=== PATIENT | female | born 1985 | race Caucasian/White ===

== ENCOUNTER 2023-06-21 20:55 | Inpatient (IN) | payer BC ==
[~2023-06-21] VITALS: Ht 165.1 cm; Wt 90.9 kg
[2023-06-21 21:36] LABS: BASOPHILS % (AUTO) 0.3 % (0-1); EOSINOPHILS % (AUTO) 0.1 % (0-6); HEMATOCRIT 43.2 % (35.0-45.0); HEMOGLOBIN 15.1 g/dl (12.0-16.0); LYMPHOCYTES # (AUTO) 0.7 X10'3 (1.1-4.8); LYMPHOCYTES % (AUTO) 4.9 % (21-51); MEAN CORPUSCULAR HEMOGLOBIN 31.9 PG (27.0-31.0); MEAN CORPUSCULAR HGB CONC 34.9 g/dL (33.0-36.5); MEAN CORPUSCULAR VOLUME 91.5 FL (78-98); MEAN PLATELET VOLUME 6.8 FL (7.4-10.4); MONOCYTES # (AUTO) 0.9 X10'3 (0-0.9); MONOCYTES % (AUTO) 6.4 % (2-12); NEUTROPHILS # (AUTO) 12.6 X10'3 (1.8-7.7); NEUTROPHILS % (AUTO) 88.3 % (42-75); PLATELET COUNT 264 X10'3 (140-440); RED BLOOD COUNT 4.72 X10'6 (4.20-5.60); RED CELL DISTRIBUTION WIDTH 12.8 % (11.5-14.5); WHITE BLOOD COUNT 14.2 X10'3 (4.5-11.0)
[2023-06-21 21:48] LABS: ALANINE AMINOTRANSFERASE 40 U/L (12-78); ALBUMIN 3.9 G/DL (3.4-5.0); ALKALINE PHOSPHATASE 70 IU/L (46-116); ANION GAP 13 (8-16); ASPARTATE AMINO TRANSFERASE 24 U/L (10-37); BILIRUBIN,TOTAL 0.9 MG/DL (0.1-1.0); BLOOD UREA NITROGEN 11 MG/DL (7-18); BUN/CREATININE RATIO 11.2 (10.0-20.0); CALCIUM 10.1 MG/DL (8.5-10.1); CHLORIDE 103 MMOL/L (99-107); CREATININE 0.98 MG/DL (0.40-0.90); GLUCOSE 143 MG/DL (70-104); LIPASE 41 U/L (16-77); POTASSIUM 3.4 MMOL/L (3.5-5.1); SODIUM 140 MMOL/L (135-145); TOTAL CARBON DIOXIDE 24.3 MMOL/L (24-32); TOTAL PROTEIN 7.9 G/DL (6.4-8.2); eCRCL 69 ML/MIN; eGFR 63 ML/MIN
[2023-06-21] MEDS: ondansetron/PF 4mg/2ml inj IV ONE (23:36)
[2023-06-21] MEDS: morphine 4 MG/ML inj SYRINge IV PRN (23:37)
[2023-06-21] MEDS: normal saline 1000ML IV soln IVB ONE (23:43)
[2023-06-22] VITALS (18 sets, daily range): BP systolic 98–149; BP diastolic 47–81; PULSE 74–127; RESP 12–23; TEMP 98.1–99.2; O2SAT 94–99
[2023-06-22] MEDS: piperacillin/tazo 4.5gm/100ml 100 ML IV ONE (00:31)
[2023-06-22 00:35] LABS: URINE HCG NEGATIVE (NEG)
[2023-06-22 00:36] LABS: BILIRUBIN,URINE SMALL (Neg); CLARITY,URINE TURBID (Clear); COLOR,URINE AMBER (Yellow); GLUCOSE, URINE NEGATIVE (Neg); KETONES,URINE TRACE mg/dl (Neg); LEUKOCYTE ESTERASE ,URINE NEGATIVE (Neg); NITRITES, URINE NEGATIVE (Neg); OCCULT BLOOD,URINE NEGATIVE (Neg); PH,URINE 5.5 (4.8-8.0); PROTEIN,URINE NEGATIVE (Neg); UROBILINOGEN,URINE 0.2 E.U/dL (0.2-1.0)
[2023-06-22 01:02] LABS: UA COLLECTION TYPE CLN CATCH MIDSTREAM
[2023-06-22 01:03] LABS: SQUAMOUS EPITHELIAL CELL,UR MANY /LPF (FEW)
[2023-06-22 01:04] LABS: AMORPHOUS URATES 4+
[2023-06-22] MEDS ORDERED: potassium Cl 20 mEq SR tablet PO PRN (01:15)
[2023-06-22] MEDS ORDERED: magnesium 4gm in 100ml NS 100 ML IV PRN (01:15)
[2023-06-22] MEDS ORDERED: magnesium Cl slow-release 64mg tablet PO PRN (01:15)
[2023-06-22] MEDS ORDERED: mag hydrox/Alum hydrox/simeth 30ml oral suspension PO PRN (01:15)
[2023-06-22] MEDS ORDERED: ondansetron/PF 4mg/2ml inj IV PRN ×2 (01:15→04:50)
[2023-06-22] MEDS ORDERED: potassium Cl 40MEQ/1/2NS 520ml 520 ML IV PRN (01:15)
[2023-06-22] MEDS ORDERED: magnesium hydroxide 30ml (MOM) UD suspension PO PRN (01:15)
[2023-06-22 01:21] LABS: BACTERIA,URINE 3+ /HPF (Neg); RBC,URINE 0-2 /HPF (0-2); WBC,URINE 0-4 /HPF (0-4)
[2023-06-22 01:30] LABS: APTT 24 SECONDS (22-32); INR 1.1 INR; PROTHROMBIN TIME 11.4 SECONDS (9.0-12.0)
[2023-06-22] MEDS: normal saline 1000ml 1,000 ML IV SCH (01:38)
[2023-06-22] MEDS ORDERED: sevoflurane 250ml liquid IH ONE (04:45)
[2023-06-22] MEDS ORDERED: midazolam 1 mg/ML 2ml injection ONE (04:46)
[2023-06-22] MEDS ORDERED: labetalol 20mg/4ml (5mg/ml) syringe IV PRN (04:50)
[2023-06-22] MEDS ORDERED: morphine 4 MG/ML inj SYRINge IV PRN (04:50)
[2023-06-22] MEDS ORDERED: proCHLORperazine 10 MG/2 ml inj IV PRN (04:50)
[2023-06-22] MEDS ORDERED: meperidine/PF 25mg/ml syringe IV PRN ×3 (04:50)
[2023-06-22] MEDS ORDERED: famotidine/PF 10 mg/ml inj IV ONE (04:50)
[2023-06-22] MEDS ORDERED: morphine 2 MG/ML inj. syringe IV PRN (04:50)
[2023-06-22] MEDS ORDERED: hydrALAZINE 20mg/ml inj. IV PRN (04:50)
[2023-06-22] MEDS ORDERED: fentaNYL /PF 50mcg/ml 5ml ampule ONE (05:02)
[2023-06-22] MEDS ORDERED: rocuronium 10mg/ml inj IV ONE (05:07)
[2023-06-22] MEDS ORDERED: dexamethasone sod phosphate 4mg/ml inj. ONE (05:07)
[2023-06-22] MEDS ORDERED: LIDOcaine 2% (20mg/ml) 5ml vial ONE (05:07)
[2023-06-22] MEDS ORDERED: ondansetron/PF 4mg/2ml inj ONE (05:07)
[2023-06-22] MEDS ORDERED: propofol inj 20 ML IV ONE (05:07)
[2023-06-22] MEDS ORDERED: ceFOXitin 1000 MG inj ONE ×2 (05:11)
[2023-06-22] MEDS: BUPIVAcaine/PF 2.5mg/ml (0.25%) 10ml vial ONE (05:23)
[2023-06-22] MEDS ORDERED: neostigmine methylsulfate 1 MG/ML 10ml vial ONE (05:38)
[2023-06-22] MEDS ORDERED: glycopyrrolate 0.2mg/ml inj ONE (05:38)
[2023-06-22] MEDS: acetaminophen 1,000mg/100ml IV 100 ML IV ONE (06:14)
[2023-06-22] MEDS: ringers solution, lacted 1,000 ML IV SCH (06:15)
[2023-06-22] MEDS: ketorolac trometh. 30mg/ml inj. IV ONE (06:16)
[2023-06-22] MEDS: morphine 2 MG/ML inj. syringe IV PRN (06:45)
[2023-06-22] MEDS: piperacillin/tazo 4.5gm/100ml 100 ML IV SCH (08:22)
[2023-06-22] MEDS ORDERED: NO HOME MEDS (09:46)
[2023-06-22] MEDS ORDERED: temazepam 15mg capsule PO PRN (21:00)
[2023-06-23 03:32] VITALS: BP 116/77; PULSE 104; RESP 16; O2SAT 96
[2023-06-23 05:58] VITALS: BP 145/80; PULSE 118; RESP 18; TEMP 99.7; O2SAT 97
[2023-06-23] MEDS: acetaminophen 325mg tablet PO PRN (06:04)
[2023-06-23 06:25] LABS: BASOPHILS % (AUTO) 0.2 % (0-1); EOSINOPHILS % (AUTO) 0.1 % (0-6); HEMATOCRIT 39.5 % (35.0-45.0); HEMOGLOBIN 13.5 g/dl (12.0-16.0); LYMPHOCYTES # (AUTO) 0.9 X10'3 (1.1-4.8); MEAN CORPUSCULAR HEMOGLOBIN 31.8 PG (27.0-31.0); MEAN CORPUSCULAR HGB CONC 34.2 g/dL (33.0-36.5); MEAN CORPUSCULAR VOLUME 92.9 FL (78-98); MEAN PLATELET VOLUME 7.2 FL (7.4-10.4); MONOCYTES # (AUTO) 0.7 X10'3 (0-0.9); MONOCYTES % (AUTO) 6.5 % (2-12); NEUTROPHILS # (AUTO) 8.7 X10'3 (1.8-7.7); NEUTROPHILS % (AUTO) 84.2 % (42-75); PLATELET COUNT 209 X10'3 (140-440); RED BLOOD COUNT 4.25 X10'6 (4.20-5.60); RED CELL DISTRIBUTION WIDTH 12.8 % (11.5-14.5); WHITE BLOOD COUNT 10.3 X10'3 (4.5-11.0)
[2023-06-23 06:33] LABS: ALBUMIN 2.9 G/DL (3.4-5.0); ANION GAP 6 (8-16); BLOOD UREA NITROGEN 8 MG/DL (7-18); CALCIUM 8.9 MG/DL (8.5-10.1); CHLORIDE 106 MMOL/L (99-107); GLUCOSE 101 MG/DL (70-104); SODIUM 139 MMOL/L (135-145); TOTAL CARBON DIOXIDE 27.3 MMOL/L (24-32); eCRCL 85 ML/MIN; eGFR 80 ML/MIN
[2023-06-23 06:43] LABS: POTASSIUM 2.7 MMOL/L (3.5-5.1)
[2023-06-23] MEDS: potassium Cl 20 mEq SR tablet PO PRN (07:17)
[2023-06-23 08:14] VITALS: BP 135/85; PULSE 118; RESP 18; TEMP 98.3; O2SAT 96
== END 2023-06-23 13:35 | disposition home or self-care (01) | DRG 399 ==
LOC: ER 20:56 → ED HOLD 06-22 01:16 → ORTHO 4S 06-22 03:30
PROVIDERS: ADMIT Internal Medicine Critical Care Medicine; ATTEND Internal Medicine
PROC: 0DTJ4ZZ Resection of Appendix, Percutaneous Endoscopic Approach (ICD-10-PCS; principal; 2023-06-22 04:45)
DX: K35.891 Other acute appendicitis without perforation, with gangrene (principal); E87.6 Hypokalemia; Z98.51 Tubal ligation status; E66.9 Obesity, unspecified; Z98.891 History of uterine scar from previous surgery; Z90.49 Acquired absence of other specified parts of digestive tract; Z68.33 Body mass index [BMI] 33.0-33.9, adult
CPT/HCPCS: 99285; Z7506; Z7508; 36415; 74176; 80048; 80053; 81001; 81025; 83690; 85025; 85610; 85730; 87081; A4215; A4615; A4618; A7000; G0378; J0131; J0694; J1100; J1885; J2250; J2270; J2405; J2543; J2704; J2710; J3010; J3490; J7030